=== PATIENT | female | born 1955 | race Caucasian/White ===

== ENCOUNTER → 2016-09-11 | Outpatient (CLI) | payer OTHER ==
[~2016-09-11] MED LIST: ADVIL100 M2 PO; B-12250 MCG PO; CALCIUM 500 +1 EAC5 PO; CALCIUM 600 +1 EAC1 PO; CELEBREX 200 M200 M1 PO; COMPAZINE10 MG PO; FLEXERIL PO; FOLIC ACID 40400 MC1 PO; FOSAMAX 70 MG T70 M1 PO; HYDROCODON-ACE1 EAC7 PO; ITRACONAZOLE100 MG PO; LIPITOR20 MG PO; MELATONIN5 M1 PO; NIACIN SR 250250 MG PO; NORCO 5-325 TA1 EACH PO; ROBAXIN 750 MG750 M1 PO; TRAMADOL 50 MG50 MG PO; VITAMIN D31000 UNI2 PO; ZOFRAN ODT4 MG PO
[2016-09-11 13:12] LABS: ABSOLUTE NEUTROPHILS 6.7 thou/uL (1.4-8.2); BASOPHILS 1.1 % (0.0-2.0); EOSINOPHILS 2.4 % (0.0-3.0); HEMATOCRIT 42.9 % (37.0-47.0); HEMOGLOBIN 14.6 gm/dL (12.0-15.0); LYMPHOCYTES 26.1 % (24.0-44.0); MCH 28.9 pg (26.0-34.0); MCHC 33.9 g/dL (28.0-37.0); MCV 85.2 fL (80.0-100.0); MONOCYTES 3.7 % (1.0-8.0); PLATELET COUNT 208 thou/uL (150-400); POLYS 66.7 % (36.0-66.0); RBC 5.03 mil/uL (4.20-5.00); RDW 14.1 % (10.5-14.5)
[2016-09-11 13:15] LABS: MANUAL DIFF NO
[2016-09-11 13:25] LABS: CALCIUM 8.6 mg/dL (8.5-10.1); CREATININE 0.8 mg/dL (0.6-1.0); POTASSIUM 4.2 mmol/L (3.5-5.1)
[2016-09-11 13:29] LABS: ALBUMIN 3.7 g/dL (3.4-5.0); TOTAL BILIRUBIN 0.3 mg/dL (<0.1-1.0); TOTAL PROTEIN 7.2 g/dL (6.4-8.2)
[2016-09-12 02:11] LABS: GLYCOHEMOGLOBIN (HGB A1C) 5.8 % (4.8-5.6)
== END ==
LOC: CAT 12:05
PROVIDERS: Family Medicine
DX: D35.02 Benign neoplasm of left adrenal gland (principal); J32.9 Chronic sinusitis, unspecified; D35.01 Benign neoplasm of right adrenal gland; K57.30 Diverticulosis of large intestine without perforation or abscess without bleeding